=== PATIENT | male | born 1965 | race Caucasian/White ===

== ENCOUNTER → 2023-10-11 06:19 | Day surgery (SDC) | payer OTHER, SELFPAY | LOC: GI 06:19 | PROVIDERS: ATTENDING PHYSICIAN Surgery | DX: Z12.11 Encounter for screening for malignant neoplasm of colon (principal); D12.2 Benign neoplasm of ascending colon; D12.3 Benign neoplasm of transverse colon; K64.4 Residual hemorrhoidal skin tags | CPT/HCPCS: 45380; 88305 ==

== ENCOUNTER → 2023-11-09 14:40 | Outpatient (REF) | payer OTHER, SELFPAY | LOC: HWRAD 14:40 | PROVIDERS: ATTENDING PHYSICIAN Family Medicine | DX: S93.401A Sprain of unspecified ligament of right ankle, initial encounter (principal) | CPT/HCPCS: 73610; 73630 ==

== ENCOUNTER → 2025-01-03 14:35 | Outpatient (REF) | payer OTHER, SELFPAY | LOC: RAD 14:35 | PROVIDERS: ATTENDING PHYSICIAN Ophthalmology; FAMILY PHYSICIAN Family Medicine | DX: H05.20 Unspecified exophthalmos (principal) | CPT/HCPCS: 70482; Q9967 ==

== ENCOUNTER → 2025-03-06 07:57 | Outpatient (REF) | payer OTHER, SELFPAY | LOC: HWRAD 07:57 | PROVIDERS: ATTENDING PHYSICIAN Nurse Practitioner Family; FAMILY PHYSICIAN Family Medicine | DX: R76.8 Other specified abnormal immunological findings in serum (principal) | CPT/HCPCS: 76536 ==